=== PATIENT | male | born 1965 | race Native Hawaiian/Other Pacific Islander ===

== ENCOUNTER 2017-04-20 12:26 | Emergency (ER) | payer OTHER ==
[~2017-04-20] VITALS: Ht 175.3 cm; Wt 83.9 kg
[2017-04-20 14:04] VITALS: TEMP 98.2
[2017-04-20 14:27] VITALS: BP 144/67
== END 2017-04-20 14:28 | disposition home or self-care (01) ==
LOC: ED 12:26
DX: S06.0X1A Concussion with loss of consciousness of 30 minutes or less, initial encounter (principal); F07.81 Postconcussional syndrome; S02.2XXA Fracture of nasal bones, initial encounter for closed fracture; W20.8XXA Other cause of strike by thrown, projected or falling object, initial encounter; Y92.098 Other place in other non-institutional residence as the place of occurrence of the external cause
CPT/HCPCS: 99283

== ENCOUNTER 2017-12-25 19:19 | Emergency (ER) | payer OTHER ==
[~2017-12-25] VITALS: Ht 175.3 cm; Wt 81.6 kg
[2017-12-25 22:07] VITALS: BP 140/87; TEMP 98.1
== END 2017-12-25 22:23 | disposition short-term general hospital (02) ==
LOC: ED 19:19
DX: S62.501B Fracture of unspecified phalanx of right thumb, initial encounter for open fracture (principal); W29.8XXA Contact with other powered hand tools and household machinery, initial encounter
CPT/HCPCS: 90471; 90715; 96372; 99285; J0690; J2001

== ENCOUNTER 2018-04-20 14:52 | Emergency (ER) | payer OTHER ==
[~2018-04-20] VITALS: Ht 175.3 cm; Wt 81.6 kg
[2018-04-20 14:56] VITALS: BP 139/85; TEMP 98.7
== END 2018-04-20 15:20 | disposition home or self-care (01) ==
LOC: ED 14:52
PROC: 0HQDXZZ Repair Right Lower Arm Skin, External Approach (ICD-10-PCS; principal; 2018-04-20)
DX: S61.511A Laceration without foreign body of right wrist, initial encounter (principal); W29.8XXA Contact with other powered hand tools and household machinery, initial encounter
CPT/HCPCS: 99283; J7040